=== PATIENT | male | born 1935 | race Caucasian/White ===

== ENCOUNTER 2022-12-16 10:14 | Inpatient (IN) | payer MEDICARE, OTHER ==
[~2022-12-16] VITALS: Ht 177.8 cm; Wt 85.4 kg
[2022-12-16 11:12] LABS: Basophils # (auto) 0.1 10 ^3/uL (0-0.2); Basophils % (auto) 0.5 % (0.0-2.0); Eosinophils # (auto) 0 10 ^3/uL (0-0.8); Eosinophils % (auto) 0.1 % (0.0-7.0); Hematocrit 43.6 % (41.0-53.0); Hemoglobin 14.1 g/dL (13.5-17.5); Lymphocytes # (auto) 1.7 10 ^3/uL (0.4-5.4); Lymphocytes % (auto) 11.1 % (10.0-50.0); Mean Corpuscular Hemoglobin 29.4 pg (28.0-32.0); Mean Corpuscular Hgb Conc. 32.4 g/dL (32.0-36.0); Monocytes # (auto) 2.2 10 ^3/uL (0-1.3); Monocytes % (auto) 14.8 % (0.0-12.0); Neutrophils # (auto) 10.9 10 ^3/uL (1.6-8.6); Neutrophils % (auto) 73.5 % (37.0-80.0); Nucleated Red Blood Cells % 0.1 %; Red Blood Cells 4.79 10^6/uL (4.5-5.90); Red Cell Distribution Width 16.2 % (11.8-14.3); White Blood Cell 14.9 10^3/uL (4.4-10.8)
[2022-12-16 11:24] LABS: Calcium 9.3 mg/dL (8.5-10.1)
[2022-12-16 11:27] LABS: BUN/Creatinine Ratio 19.5; Bilirubin, Total 1.3 mg/dL (0.2-1.0); Total Protein 7.8 g/dL (6.4-8.2)
[2022-12-16 11:53] LABS: Potassium 4.5 mmol/L (3.5-5.1)
[2022-12-16] MEDS ORDERED: HYDROcodone-ACET 5/325MG TAB PO PRN (17:30)
[2022-12-16] MEDS ORDERED: ACETAMINOPHEN 325 MG TAB PO PRN (17:30)
[2022-12-16] MEDS ORDERED: MORPHINE SULFATE INJ 2 MG/ml SYRG IV PRN ×2 (17:30)
[2022-12-16] MEDS ORDERED: NITROGLYCERIN 0.4 MG SL TAB SL PRN (17:30)
[2022-12-16] MEDS ORDERED: LOSA-39 PO (17:35)
[2022-12-16] MEDS ORDERED: METO25TA93 PO (17:35)
[2022-12-16] MEDS ORDERED: ATOR40TA52 PO (17:35)
[2022-12-16] MEDS ORDERED: DEXTROSE (50%) 50ML SYRG IV PRN (17:45)
[2022-12-16] MEDS ORDERED: ASPirin 81 mg TAB PO ONE (17:45)
[2022-12-16] MEDS ORDERED: FUROSEMIDE 20 MG/2 ML VIAL IV ONE (17:45)
[2022-12-16 20:06] LABS: Cholesterol 122 mg/dL (< 200)
[2022-12-16 20:08] LABS: Urine Bacteria NONE SEEN /hpf (None Seen); Urine Blood 1+ /uL (Negative); Urine Mucus FEW (None Seen); Urine Specific Gravity 1.019 (1.001-1.035); Urine WBC 1 /hpf (0 - 3)
[2022-12-16 20:09] LABS: HDL Cholesterol 52 mg/dL (40-59); LDL Cholesterol 61 mg/dL (< 100); Triglycerides 110 mg/dL (< 150)
[2022-12-16] MEDS: ATORVASTATIN 20 MG TAB PO SCH (21:50)
[2022-12-16] MEDS: ACCU-CHEK COMFORT CURVE STRIP VI SCH (21:53)
[2022-12-16] MEDS: InsuLIN REG 1unit/0.01ml Soln (100units/ml) SC SCH (21:53)
[2022-12-17 05:30] LABS: Basophils # (auto) 0.1 10 ^3/uL (0-0.2); Basophils % (auto) 0.4 % (0.0-2.0); Eosinophils # (auto) 0.1 10 ^3/uL (0-0.8); Eosinophils % (auto) 1.1 % (0.0-7.0); Hematocrit 37.8 % (41.0-53.0); Hemoglobin 12.7 g/dL (13.5-17.5); Lymphocytes # (auto) 1.6 10 ^3/uL (0.4-5.4); Lymphocytes % (auto) 11.7 % (10.0-50.0); Mean Corpuscular Hemoglobin 30.1 pg (28.0-32.0); Mean Corpuscular Hgb Conc. 33.7 g/dL (32.0-36.0); Mean Corpuscular Volume 89.3 fL (80.0-100.0); Monocytes # (auto) 1.9 10 ^3/uL (0-1.3); Monocytes % (auto) 13.9 % (0.0-12.0); Neutrophils # (auto) 10.1 10 ^3/uL (1.6-8.6); Neutrophils % (auto) 72.9 % (37.0-80.0); Nucleated Red Blood Cells % 0.1 %; Red Blood Cells 4.23 10^6/uL (4.5-5.90); Red Cell Distribution Width 16.3 % (11.8-14.3); White Blood Cell 13.9 10^3/uL (4.4-10.8)
[2022-12-17 05:45] LABS: Albumin 3.3 g/dL (3.4-5.0); Calcium 8.9 mg/dL (8.5-10.1); Potassium 4.1 mmol/L (3.5-5.1)
[2022-12-17 05:51] LABS: BUN/Creatinine Ratio 24.1; Bilirubin, Total 1.2 mg/dL (0.2-1.0); Total Protein 7.3 g/dL (6.4-8.2)
[2022-12-17] MEDS: InsuLIN REG 1unit/0.01ml Soln (100units/ml) SC SCH ×4 (06:58→22:03)
[2022-12-17] MEDS: ACCU-CHEK COMFORT CURVE STRIP VI SCH ×4 (07:14→22:00)
[2022-12-17] MEDS ORDERED: LOSARTAN POTASSIUM 50 MG TAB PO SCH (10:00)
[2022-12-17] MEDS: METOPROLOL SUCCINATE XL 50 MG TAB PO SCH (10:00)
[2022-12-17] MEDS: FUROSEMIDE 20 MG/2 ML VIAL IV SCH (10:26)
[2022-12-17] MEDS: ENOXAPARIN SOD 40 MG/0.4 ML SYRINGE SC SCH (10:26)
[2022-12-17] MEDS: ASPirin 81 mg TAB PO SCH (10:26)
[2022-12-17] MEDS: POTASSIUM CHL 10 Meq TABLET PO SCH (10:26)
[2022-12-17 17:53] VITALS: BP 142/68
[2022-12-17] MEDS ORDERED: LEVO100T3 PO (18:31)
[2022-12-17] MEDS ORDERED: CLOP75TA70 PO (18:31)
[2022-12-17] MEDS ORDERED: RANO500T2 PO (18:31)
[2022-12-17] MEDS ORDERED: DUTACAP PO (18:31)
[2022-12-17] MEDS ORDERED: NIFE1TAB30 PO (18:31)
[2022-12-17] MEDS ORDERED: GLIM4TAB42 PO (18:31)
[2022-12-17] MEDS ORDERED: CABE0.5T PO (18:31)
[2022-12-17] MEDS ORDERED: ASPI-543 PO (18:31)
[2022-12-17 18:37] VITALS: BP 142/68
[2022-12-17 22:00] VITALS: BP 160/78
[2022-12-17] MEDS: ATORVASTATIN 20 MG TAB PO SCH (22:00)
[2022-12-18] MEDS: hydrALAZINE HCL 20 MG/ML VL IV PRN (00:38)
[2022-12-18 05:00] VITALS: BP 98/56
[2022-12-18 05:43] LABS: Basophils # (auto) 0.1 10 ^3/uL (0-0.2); Basophils % (auto) 0.4 % (0.0-2.0); Eosinophils # (auto) 0.2 10 ^3/uL (0-0.8); Eosinophils % (auto) 1.5 % (0.0-7.0); Hematocrit 35.5 % (41.0-53.0); Hemoglobin 11.9 g/dL (13.5-17.5); Lymphocytes # (auto) 1.7 10 ^3/uL (0.4-5.4); Lymphocytes % (auto) 14.5 % (10.0-50.0); Mean Corpuscular Hemoglobin 29.5 pg (28.0-32.0); Mean Corpuscular Hgb Conc. 33.5 g/dL (32.0-36.0); Mean Corpuscular Volume 88.2 fL (80.0-100.0); Monocytes # (auto) 1.9 10 ^3/uL (0-1.3); Neutrophils # (auto) 7.9 10 ^3/uL (1.6-8.6); Neutrophils % (auto) 67.6 % (37.0-80.0); Nucleated Red Blood Cells % 0.1 %; Red Blood Cells 4.03 10^6/uL (4.5-5.90); Red Cell Distribution Width 15.9 % (11.8-14.3); White Blood Cell 11.6 10^3/uL (4.4-10.8)
[2022-12-18 06:11] LABS: Calcium 8.9 mg/dL (8.5-10.1); Potassium 3.8 mmol/L (3.5-5.1)
[2022-12-18] MEDS: InsuLIN REG 1unit/0.01ml Soln (100units/ml) SC SCH (06:13)
[2022-12-18] MEDS: ACCU-CHEK COMFORT CURVE STRIP VI SCH (06:13)
[2022-12-18 06:18] LABS: Albumin 3.3 g/dL (3.4-5.0); BUN/Creatinine Ratio 31.1; Bilirubin, Total 1.3 mg/dL (0.2-1.0); Total Protein 6.6 g/dL (6.4-8.2)
[2022-12-18 09:00] VITALS: BP 126/48
[2022-12-18] MEDS: POTASSIUM CHL 10 Meq TABLET PO SCH (10:01)
[2022-12-18] MEDS: ENOXAPARIN SOD 40 MG/0.4 ML SYRINGE SC SCH (10:02)
[2022-12-18] MEDS: ASPirin 81 mg TAB PO SCH (10:02)
[2022-12-18] MEDS: cefTRIAXone 1GM/50ML D5W 50 ML IV SCH (10:02)
[2022-12-18] MEDS: METOPROLOL SUCCINATE XL 50 MG TAB PO SCH (10:02)
[2022-12-18] MEDS: FUROSEMIDE 20 MG/2 ML VIAL IV SCH (10:06)
[2022-12-18 17:00] VITALS: BP 154/65
[2022-12-18] MEDS: ATORVASTATIN 20 MG TAB PO SCH (21:00)
[2022-12-18] MEDS: RANOLAZINE ER 500 MG TAB PO SCH (21:01)
[2022-12-19 06:17] LABS: BUN/Creatinine Ratio 30.8; Calcium 8.6 mg/dL (8.5-10.1); Potassium 4.1 mmol/L (3.5-5.1)
[2022-12-19 06:56] LABS: Hematocrit 35.2 % (41.0-53.0); Hemoglobin 12.1 g/dL (13.5-17.5); Mean Corpuscular Hemoglobin 30.4 pg (28.0-32.0); Mean Corpuscular Hgb Conc. 34.3 g/dL (32.0-36.0); Mean Corpuscular Volume 88.7 fL (80.0-100.0); Red Blood Cells 3.96 10^6/uL (4.5-5.90); Red Cell Distribution Width 15.6 % (11.8-14.3); White Blood Cell 12.6 10^3/uL (4.4-10.8)
[2022-12-19 07:00] LABS: Basophils % (manual) 0 (0.0-2.0); Blast Cells 0; Metamyelocytes % 0; Myelocytes % 0; Promyelocytes % 0; Reactive Lymphocytes 0
[2022-12-19] MEDS: cefTRIAXone 1GM/50ML D5W 50 ML IV SCH (08:56)
[2022-12-19] MEDS: FUROSEMIDE 20 MG/2 ML VIAL IV SCH (08:57)
[2022-12-19] MEDS: RANOLAZINE ER 500 MG TAB PO SCH ×2 (08:58→22:02)
[2022-12-19] MEDS: ASPirin-EC 81 mg tab PO SCH (08:58)
[2022-12-19] MEDS: LEVOTHYROXINE SODIUM 100 MCG TAB PO SCH (08:58)
[2022-12-19] MEDS: POTASSIUM CHL 10 Meq TABLET PO SCH (08:59)
[2022-12-19] MEDS: CLOPIDOGREL BISULFATE 75 MG TAB PO SCH (08:59)
[2022-12-19] MEDS: METOPROLOL SUCCINATE XL 50 MG TAB PO SCH (08:59)
[2022-12-19] MEDS: ENOXAPARIN SOD 40 MG/0.4 ML SYRINGE SC SCH (08:59)
[2022-12-19 09:00] VITALS: BP 144/57
[2022-12-19] MEDS ORDERED: PATIENTS OWN MEDICATION (Clopidogrel Bisulfate (Clopidogrel) 75 MG) PO SCH (10:00)
[2022-12-19 10:25] LABS: Band Neutrophils % (manual) 7; Eosinophils % (manual) 1 (0-7); Lymphocytes % (manual) 12 (10.0-50.0); Monocytes % (manual) 11 (0-12)
[2022-12-19] MEDS ORDERED: SOD CHL 0.45% 1,000 ML IV SCH (10:45)
[2022-12-19] MEDS: ENOXAPARIN SOD 120 MG/0.8 ML SYRINGE SC SCH ×2 (12:45→22:02)
[2022-12-19] MEDS: SODIUM CHLORIDE 0.9% 1,000 ML IV SCH ×2 (12:45→22:11)
[2022-12-19] MEDS: PANTOPRAZOLE 40 MG TAB PO SCH (12:45)
[2022-12-19 13:22] VITALS: BP 128/53
[2022-12-19 17:26] VITALS: BP 131/60
[2022-12-19 22:00] VITALS: BP 155/72
[2022-12-19] MEDS: ATORVASTATIN 20 MG TAB PO SCH (22:02)
[2022-12-20] VITALS (10 sets, daily range): BP systolic 137–170; BP diastolic 52–80
[2022-12-20 05:32] LABS: Hematocrit 31.4 % (41.0-53.0); Mean Corpuscular Hemoglobin 30.8 pg (28.0-32.0); Mean Corpuscular Hgb Conc. 34.9 g/dL (32.0-36.0); Mean Corpuscular Volume 88.1 fL (80.0-100.0); Red Blood Cells 3.57 10^6/uL (4.5-5.90); Red Cell Distribution Width 15.8 % (11.8-14.3)
[2022-12-20 05:35] LABS: Basophils % (manual) 0 (0.0-2.0); Blast Cells 0; Eosinophils % (manual) 0 (0-7); Metamyelocytes % 0; Myelocytes % 0; Promyelocytes % 0; Reactive Lymphocytes 0
[2022-12-20 05:42] LABS: INR 1.17 (0.9-1.15); Partial Thromboplastin Time 41.2 sec (24.6-33.4)
[2022-12-20 05:59] LABS: Potassium 3.9 mmol/L (3.5-5.1)
[2022-12-20 06:05] LABS: BUN/Creatinine Ratio 30.3; Calcium 8.4 mg/dL (8.5-10.1)
[2022-12-20 06:47] LABS: Band Neutrophils % (manual) 2; Lymphocytes % (manual) 10 (10.0-50.0); Monocytes % (manual) 19 (0-12)
[2022-12-20] MEDS: cefTRIAXone 1GM/50ML D5W 50 ML IV SCH (11:17)
[2022-12-20] MEDS: METOPROLOL SUCCINATE XL 50 MG TAB PO SCH (11:33)
[2022-12-20] MEDS: ASPirin-EC 81 mg tab PO SCH (11:33)
[2022-12-20] MEDS: LEVOTHYROXINE SODIUM 100 MCG TAB PO SCH (11:34)
[2022-12-20] MEDS: POTASSIUM CHL 10 Meq TABLET PO SCH (11:34)
[2022-12-20] MEDS: PANTOPRAZOLE 40 MG TAB PO SCH (11:34)
[2022-12-20] MEDS: CLOPIDOGREL BISULFATE 75 MG TAB PO SCH (11:34)
[2022-12-20] MEDS: RANOLAZINE ER 500 MG TAB PO SCH ×2 (11:34→22:02)
[2022-12-20] MEDS ORDERED: HEPARIN SODIUM (PORCINE) 5000 UNITS/ML 1ML VIAL ONE (15:55)
[2022-12-20] MEDS ORDERED: ANGIOMAX 250 MG VIAL IV ONE (15:55)
[2022-12-20] MEDS ORDERED: VERAPAMIL 2.5MG/ML INJ 2ML VIAL IV ONE (15:56)
[2022-12-20] MEDS ORDERED: SODIUM CHL 0.9% 50 ML ONE (15:56)
[2022-12-20] MEDS ORDERED: LIDOCAINE 2%HCL (LOCAL ANESTH.) INJ 20ML MDV ONE (15:56)
[2022-12-20] MEDS ORDERED: IODIXANOL 320MG/ML 100ML BTL IV ONE (15:56)
[2022-12-20] MEDS ORDERED: MIDAZOLAM HCL 2MG/2ML 2ml VIAL (1mg/ml) ONE (15:56)
[2022-12-20] MEDS ORDERED: fentaNYL CITRATE 100 MCG/2 ML VL ONE (15:56)
[2022-12-20] MEDS: SODIUM CHLORIDE 0.9% 1,000 ML IV SCH (17:21)
[2022-12-20] MEDS: FUROSEMIDE 20 MG/2 ML VIAL IV SCH (18:45)
[2022-12-20] MEDS: ATORVASTATIN 20 MG TAB PO SCH (22:02)
[2022-12-21 05:00] VITALS: BP 118/44
[2022-12-21 06:13] LABS: Calcium 8.5 mg/dL (8.5-10.1); Potassium 3.9 mmol/L (3.5-5.1)
[2022-12-21 06:14] LABS: Hematocrit 29.6 % (41.0-53.0); Hemoglobin 10.3 g/dL (13.5-17.5); Mean Corpuscular Hemoglobin 30.5 pg (28.0-32.0); Mean Corpuscular Hgb Conc. 34.7 g/dL (32.0-36.0); Mean Corpuscular Volume 87.9 fL (80.0-100.0); Red Blood Cells 3.37 10^6/uL (4.5-5.90); Red Cell Distribution Width 15.5 % (11.8-14.3); White Blood Cell 8.5 10^3/uL (4.4-10.8)
[2022-12-21 06:15] LABS: BUN/Creatinine Ratio 29.1
[2022-12-21 06:21] LABS: Band Neutrophils % (manual) 0; Basophils % (manual) 0 (0.0-2.0); Blast Cells 0; Eosinophils % (manual) 0 (0-7); Metamyelocytes % 0; Myelocytes % 0; Promyelocytes % 0; Reactive Lymphocytes 0
[2022-12-21] MEDS: FUROSEMIDE 20 MG/2 ML VIAL IV SCH (06:50)
[2022-12-21] MEDS: SODIUM CHLORIDE 0.9% 1,000 ML IV SCH (08:20)
[2022-12-21] MEDS: cefTRIAXone 1GM/50ML D5W 50 ML IV SCH (08:30)
[2022-12-21 09:00] VITALS: BP 146/62
[2022-12-21 09:54] LABS: Lymphocytes % (manual) 13 (10.0-50.0); Monocytes % (manual) 15 (0-12)
[2022-12-21] MEDS: ASPirin-EC 81 mg tab PO SCH (10:30)
[2022-12-21] MEDS: LOSARTAN POTASSIUM 25 MG TAB PO SCH (10:30)
[2022-12-21] MEDS: POTASSIUM CHL 10 Meq TABLET PO SCH (10:31)
[2022-12-21] MEDS: METOPROLOL SUCCINATE XL 50 MG TAB PO SCH (10:31)
[2022-12-21] MEDS: RANOLAZINE ER 500 MG TAB PO SCH ×2 (10:31→21:44)
[2022-12-21] MEDS: CLOPIDOGREL BISULFATE 75 MG TAB PO SCH (10:31)
[2022-12-21] MEDS: PANTOPRAZOLE 40 MG TAB PO SCH (10:31)
[2022-12-21] MEDS: LEVOTHYROXINE SODIUM 100 MCG TAB PO SCH (10:31)
[2022-12-21 12:54] VITALS: BP 140/57
[2022-12-21 17:22] VITALS: BP 115/57
[2022-12-21] MEDS: ATORVASTATIN 20 MG TAB PO SCH (21:44)
[2022-12-21 22:00] VITALS: BP 134/57
[2022-12-22 05:00] VITALS: BP 139/81
[2022-12-22] MEDS ORDERED: FUROSEMIDE 20 MG/2 ML VIAL IV SCH (06:00)
[2022-12-22 08:02] LABS: Hematocrit 29.3 % (41.0-53.0); Hemoglobin 10.2 g/dL (13.5-17.5); Mean Corpuscular Hemoglobin 30.5 pg (28.0-32.0); Mean Corpuscular Hgb Conc. 34.8 g/dL (32.0-36.0); Mean Corpuscular Volume 87.5 fL (80.0-100.0); Red Blood Cells 3.35 10^6/uL (4.5-5.90); Red Cell Distribution Width 15.5 % (11.8-14.3); White Blood Cell 7.8 10^3/uL (4.4-10.8)
[2022-12-22 08:28] LABS: Albumin 2.4 g/dL (3.4-5.0); Calcium 8.6 mg/dL (8.5-10.1); Potassium 3.6 mmol/L (3.5-5.1)
[2022-12-22 08:31] LABS: BUN/Creatinine Ratio 27.3; Bilirubin, Total 0.4 mg/dL (0.2-1.0); Total Protein 6.5 g/dL (6.4-8.2)
[2022-12-22 08:34] LABS: Basophils % (manual) 0 (0.0-2.0); Blast Cells 0; Metamyelocytes % 0; Myelocytes % 0; Promyelocytes % 0; Reactive Lymphocytes 0
[2022-12-22 09:00] VITALS: BP 133/40
[2022-12-22] MEDS: ASPirin-EC 81 mg tab PO SCH (10:42)
[2022-12-22] MEDS: RANOLAZINE ER 500 MG TAB PO SCH ×2 (10:42→21:32)
[2022-12-22] MEDS: cefTRIAXone 1GM/50ML D5W 50 ML IV SCH (10:42)
[2022-12-22] MEDS: LOSARTAN POTASSIUM 25 MG TAB PO SCH (10:45)
[2022-12-22] MEDS: METOPROLOL SUCCINATE XL 50 MG TAB PO SCH (10:47)
[2022-12-22] MEDS: POTASSIUM CHL 10 Meq TABLET PO SCH (10:48)
[2022-12-22] MEDS: PANTOPRAZOLE 40 MG TAB PO SCH (10:48)
[2022-12-22] MEDS: CLOPIDOGREL BISULFATE 75 MG TAB PO SCH (10:48)
[2022-12-22] MEDS: LEVOTHYROXINE SODIUM 100 MCG TAB PO SCH (10:48)
[2022-12-22 11:09] LABS: Band Neutrophils % (manual) 4; Eosinophils % (manual) 5 (0-7); Lymphocytes % (manual) 12 (10.0-50.0); Monocytes % (manual) 18 (0-12)
[2022-12-22] MEDS ORDERED: FUROSEMIDE 40 MG/4 ML VIAL IV ONE (12:00)
[2022-12-22 13:00] VITALS: BP 131/56
[2022-12-22 17:00] VITALS: BP 140/72
[2022-12-22] MEDS: FUROSEMIDE 20 MG/2 ML VIAL IV SCH (18:36)
[2022-12-22] MEDS: ATORVASTATIN 20 MG TAB PO SCH (21:32)
[2022-12-22 22:00] VITALS: BP 165/71
[2022-12-22] MEDS: hydrALAZINE HCL 20 MG/ML VL IV PRN (22:23)
[2022-12-23 05:00] VITALS: BP 144/55
[2022-12-23] MEDS: FUROSEMIDE 20 MG/2 ML VIAL IV SCH (06:00)
[2022-12-23 09:00] VITALS: BP 120/39
[2022-12-23] MEDS: METOPROLOL SUCCINATE XL 50 MG TAB PO SCH (10:00)
[2022-12-23] MEDS: LOSARTAN POTASSIUM 25 MG TAB PO SCH (10:00)
[2022-12-23] MEDS: CLOPIDOGREL BISULFATE 75 MG TAB PO SCH (10:12)
[2022-12-23] MEDS: PANTOPRAZOLE 40 MG TAB PO SCH (10:12)
[2022-12-23] MEDS: LEVOTHYROXINE SODIUM 100 MCG TAB PO SCH (10:13)
[2022-12-23] MEDS: POTASSIUM CHL 10 Meq TABLET PO SCH (10:13)
[2022-12-23] MEDS: ASPirin-EC 81 mg tab PO SCH (10:13)
[2022-12-23] MEDS: RANOLAZINE ER 500 MG TAB PO SCH (10:13)
[2022-12-23] MEDS: cefTRIAXone 1GM/50ML D5W 50 ML IV SCH (10:14)
[2022-12-23 12:30] VITALS: BP 122/78
[2022-12-23 13:00] VITALS: BP 115/50
[2022-12-23 16:24] LABS: Hematocrit 30.7 % (41.0-53.0); Hemoglobin 10.7 g/dL (13.5-17.5); Mean Corpuscular Hemoglobin 30.1 pg (28.0-32.0); Mean Corpuscular Hgb Conc. 34.7 g/dL (32.0-36.0); Mean Corpuscular Volume 86.7 fL (80.0-100.0); Red Blood Cells 3.54 10^6/uL (4.5-5.90); Red Cell Distribution Width 15.2 % (11.8-14.3); White Blood Cell 7.9 10^3/uL (4.4-10.8)
[2022-12-23 16:42] LABS: BUN/Creatinine Ratio 25.9; Calcium 8.8 mg/dL (8.5-10.1); Potassium 3.5 mmol/L (3.5-5.1)
[2022-12-23 16:50] LABS: Basophils % (manual) 0 (0.0-2.0); Blast Cells 0; Metamyelocytes % 0; Myelocytes % 0; Promyelocytes % 0; Reactive Lymphocytes 0
[2022-12-23 17:00] VITALS: BP 145/44
[2022-12-23 18:22] LABS: Band Neutrophils % (manual) 5; Eosinophils % (manual) 5 (0-7); Lymphocytes % (manual) 7 (10.0-50.0); Monocytes % (manual) 26 (0-12)
== END 2022-12-23 17:55 | DRG 853 ==
LOC: EDBD 10:14 → ER 10:14 → TELE 17:34 → TELE-EAST 12-17 17:28
PROVIDERS: ADMIT Registered Nurse; ATTEND Nurse Practitioner Acute Care
PROC: 027034Z Dilation of Coronary Artery, One Artery with Drug-eluting Intraluminal Device, Percutaneous Approach (ICD-10-PCS; principal; 2022-12-20)
PROC: 02F03ZZ Fragmentation in Coronary Artery, One Artery, Percutaneous Approach (ICD-10-PCS; 2022-12-20)
PROC: B41GYZZ Fluoroscopy of Left Lower Extremity Arteries using Other Contrast (ICD-10-PCS; 2022-12-20)
PROC: B211YZZ Fluoroscopy of Multiple Coronary Arteries using Other Contrast (ICD-10-PCS; 2022-12-20)
DX: A41.9 Sepsis, unspecified organism (principal); I21.4 Non-ST elevation (NSTEMI) myocardial infarction; S72.001A Fracture of unspecified part of neck of right femur, initial encounter for closed fracture; I50.43 Acute on chronic combined systolic (congestive) and diastolic (congestive) heart failure; M62.82 Rhabdomyolysis; E87.1 Hypo-osmolality and hyponatremia; D72.829 Elevated white blood cell count, unspecified; J44.9 Chronic obstructive pulmonary disease, unspecified; E11.22 Type 2 diabetes mellitus with diabetic chronic kidney disease; E11.51 Type 2 diabetes mellitus with diabetic peripheral angiopathy without gangrene; I65.22 Occlusion and stenosis of left carotid artery; N18.31 Chronic kidney disease, stage 3a; Z20.822 Contact with and (suspected) exposure to COVID-19; R62.7 Adult failure to thrive; W18.39XA Other fall on same level, initial encounter; I25.10 Atherosclerotic heart disease of native coronary artery without angina pectoris; Z95.0 Presence of cardiac pacemaker; Z95.5 Presence of coronary angioplasty implant and graft; Z86.73 Personal history of transient ischemic attack (TIA), and cerebral infarction without residual deficits; Y93.89 Activity, other specified; Y92.098 Other place in other non-institutional residence as the place of occurrence of the external cause; Y99.8 Other external cause status
CPT/HCPCS: 36415; 70450; 71045; 73080; 73502; 73700; 80048; 80053; 80061; 81001; 82550; 82962; 83036; 83735; 83880; 84443; 84484; 85007; 85025; 85027; 85610; 85730; 86850; 86900; 86901; 87040; 87086; 87426; 93005; 93306; 93886; 97110; 97163; 97530; 99152; 99153; C1874; G0378; J0696; J1815; J2250; Q9967